=== PATIENT | male | born 1945 | race Caucasian/White ===

== ENCOUNTER 2017-07-10 21:31 | Observation (INO) | payer MEDICARE, BC ==
[~2017-07-10] VITALS: Ht 167.6 cm; Wt 58.4 kg
[~2017-07-10 21:31] MED LIST: DOXA1TAB35 PO; FINA5TAB2 PO; LOSA25TA PO
[2017-07-10 21:34] VITALS: BP 166/74; PULSE 63; RESP 20; TEMP 97.7; O2SAT 99
[2017-07-10] MEDS ORDERED: MOBI15TA PO (21:44)
[2017-07-10 21:45] VITALS: RESP 16; O2SAT 97
[2017-07-10] MEDS ORDERED: NAPR1TAB98 PO (21:49)
[2017-07-10] MEDS ORDERED: GLUC1TAB38 PO (21:49)
[2017-07-10] MEDS ORDERED: ALEV220T14 PO (21:49)
[2017-07-10] MEDS ORDERED: VITA100T65 PO (21:49)
[2017-07-10] MEDS ORDERED: MULTTAB67 PO (21:49)
[2017-07-10] MEDS ORDERED: VITA500T83 PO (21:49)
[2017-07-10] MEDS ORDERED: ASPIRIN 81 MG CHEW TAB PO ONE (22:00)
[2017-07-10] MEDS ORDERED: SODIUM CHLORIDE 0.9% FLUSH 10 ML FLUSH IVF PRN (22:00)
--- NOTE | 2017-07-10 22:02 | PD ---
HPI Chief Complaint: Chest Pain Time Seen by Provider: 21:55 Travel History International Travel<30 days: No Contact w/Intl Traveler<30days: No Traveled to known affect area: No History of Present Illness HPI The patient is a 72-year-old male with no known history of heart disease who complains of chest pain, indigestion feeling, since 8 PM tonight. The pain is constant and there is slight radiation to the left arm. He does have minimal shortness of breath sensation without any nausea or diaphoresis. He does not smoke, have high cholesterol or diabetes but does have a history of mild hypertension. He is physically active and walks about 4 miles daily. His last stress test was 14 years ago. The pain started out as an 8/10 but is only a 4/ 10 at this time. [facility] Social History Alcohol Use: Yes (OCCAS) Tobacco Use: No Substance Use: No Allergies-Medications (Allergen,Severity, Reaction): Coded Allergies: No Known Allergies (Unverified , 10/15/16) Reported Meds & Prescriptions Reported Meds & Active Scripts Active Reported Mxtsvtikni-Xrttkpqqssp-PRL Tab (Gluc/Jin-MSM#2/C/D3/Isac/Born) 1 Each Tablet 1 Tab PO DAILY Vitamin C ER (Ascorbic Acid) 500 Mg Sherman 500 Mg PO Vitamin E 100 Unit Tab 400 Units PO DAILY Multiple Vitamin 1 Tab 1 Tab PO DAILY Aleve PM (Naproxen Sodium-Diphenhydramine) 220-25 Mg Tab 2 Tab PO HS PRN Aleve Arthritis (Naproxen Sodium) 220 Mg Tab 220 Mg PO DAILY Mobic (Meloxicam) 15 Mg Tab 15 Mg PO DAILY PRN Losartan (Losartan Potassium) 25 Mg Tab 25 Mg PO DAILY Doxazosin (Doxazosin Mesylate) 2 Mg Tab 2 Mg PO DAILY Finasteride 5 Mg Tab 5 Mg PO DAILY Do not crush. Review of Systems Except as stated in HPI: all other systems reviewed are Neg Physical Exam Narrative GENERAL: The patient is alert, oriented 3 and slight apparent distress with his indigestion feeling. His vital signs show blood pressure 166/74 but are otherwise normal. SKIN: Focused skin assessment warm/dry. HEAD: Atraumatic. Normocephalic. EYES: Pupils equal and round. No scleral icterus. No injection or drainage. ENT: No nasal bleeding or discharge. Mucous membranes pink and moist. NECK: Trachea midline. No JVD. CARDIOVASCULAR: Regular rate and rhythm. No murmur appreciated. RESPIRATORY: No accessory muscle use. Clear to auscultation. Breath sounds equal bilaterally. I cannot reproduce the patient's pain by pressing on the chest wall. GASTROINTESTINAL: Abdomen soft, non-tender, nondistended. Hepatic and splenic margins not palpable. No guarding or rebound is present. MUSCULOSKELETAL: No obvious deformities. No clubbing. No cyanosis. No edema. NEUROLOGICAL: Awake and alert. No obvious cranial nerve deficits. Motor grossly within normal limits. Normal speech. PSYCHIATRIC: Appropriate mood and affect; insight and judgment normal. Data Data Last Documented VS Vital Signs Date Time Temp Pulse Resp B/P (MAP) Pulse Ox O2 Delivery O2 Flow Rate FiO2 07/10/17 22:40 66 16 142/58 (86) 95 Room Air 07/10/17 21:34 97.7 Orders Orders Electrocardiogram (07/10/17 21:55) Ckmb (Isoenzyme) Profile (07/10/17 21:55) Complete Blood Count With Diff (07/10/17 21:55) Comprehensive Metabolic Panel (07/10/17 21:55) Magnesium (Mg) (07/10/17 21:55) Prothrombin Time / Inr (Pt) (07/10/17 21:55) Act Partial Throm Time (Ptt) (07/10/17 21:55) Troponin I (07/10/17 21:55) Ecg Monitoring (07/10/17 21:55) Bilateral Bp Monitoring (07/10/17 21:55) Iv Access Insert/Monitor (07/10/17 21:55) Oximetry (07/10/17 21:55) Oxygen Administration (07/10/17 21:55) Aspirin Chew (Aspirin Chew) (07/10/17 22:00) Sodium Chloride 0.9% Flush (Ns Flush) (07/10/17 22:00) Nitroglycerin Sl (Nitrostat Sl) (07/10/17 22:00) Chest, Pa & Lat (07/10/17 21:55) Place In Observation (07/10/17 23:25) Activity Bed Rest With Brp (07/10/17 23:25) Vital Signs (Adult) Q4H (07/10/17 23:25) Cardiac Rhythm .As Directed (07/10/17 23:25) Notify Dr: Other .PRN (07/10/17 23:25) Notify Dr. Parameters (07/10/17 23:25) Resp Oxygen Nasal Cannula (07/10/17 ) Diet Heart Healthy (07/11/17 Breakfast) Ckmb (Isoenzyme) Profile (07/10/17 23:25) Ckmb (Isoenzyme) Profile (07/11/17 02:25) Troponin I (07/10/17 23:25) Troponin I (07/11/17 02:25) Electrocardiogram (07/10/17 23:25) Electrocardiogram (07/11/17 02:25) ^ Obtain (07/10/17 23:25) Sodium Chloride 0.9% Flush (Ns Flush) (07/10/17 23:30) Sodium Chloride 0.9% Flush (Ns Flush) (07/11/17 09:00) Acetaminophen (Tylenol) (07/10/17 23:30) Ondansetron Inj (Zofran Inj) (07/10/17 23:30) Aspirin (Aspirin) (07/11/17 09:00) Alprazolam (Xanax) (07/10/17 23:30) Iron Carrier / Telemetry GRICEL.Q8H (07/10/17 23:25) Admit Order (Ed Use Only) (07/10/17 23:28) Labs Laboratory Tests Test 07/10/17 22:15 White Blood Count 6.7 TH/MM3 Red Blood Count 4.69 MIL/MM3 Hemoglobin 14.2 GM/DL Hematocrit 41.9 % Mean Corpuscular Volume 89.3 FL Mean Corpuscular Hemoglobin 30.2 PG Mean Corpuscular Hemoglobin Concent 33.9 % Red Cell Distribution Width 12.9 % Platelet Count 199 TH/MM3 Mean Platelet Volume 8.5 FL Neutrophils (%) (Auto) 53.0 % Lymphocytes (%) (Auto) 34.3 % Monocytes (%) (Auto) 7.9 % Eosinophils (%) (Auto) 4.0 % Basophils (%) (Auto) 0.8 % Neutrophils # (Auto) 3.5 TH/MM3 Lymphocytes # (Auto) 2.3 TH/MM3 Monocytes # (Auto) 0.5 TH/MM3 Eosinophils # (Auto) 0.3 TH/MM3 Basophils # (Auto) 0.1 TH/MM3 CBC Comment DIFF FINAL Differential Comment Prothrombin Time 10.2 SEC Prothromb Time International Ratio 0.9 RATIO Activated Partial Thromboplast Time 25.1 SEC Blood Urea Nitrogen 21 MG/DL Creatinine 0.99 MG/DL Random Glucose 97 MG/DL Total Protein 7.0 GM/DL Albumin 3.9 GM/DL Calcium Level 9.2 MG/DL Magnesium Level 2.2 MG/DL Alkaline Phosphatase 70 U/L Aspartate Amino Transf (AST/SGOT) 18 U/L Alanine Aminotransferase (ALT/SGPT) 26 U/L Total Bilirubin 0.3 MG/DL Sodium Level 140 MEQ/L Potassium Level 3.9 MEQ/L Chloride Level 104 MEQ/L Carbon Dioxide Level 29.1 MEQ/L Anion Gap 7 MEQ/L Estimat Glomerular Filtration Rate 74 ML/MIN Total Creatine Kinase 90 U/L Troponin I LESS THAN 0.02 NG/ML MDM Medical Decision Making Medical Screen Exam Complete: Yes Emergency Medical Condition: Yes Medical Record Reviewed: Yes Interpretation(s) The PA and lateral chest x-ray is normal. The CBC is normal. The coagulation profile is normal. The complete metabolic profile shows a BUN of 21, GFR of 74 but is otherwise normal. The cardiac enzymes are normal. EKG shows sinus rhythm with a rate of 63 and is a normal EKG. Differential Diagnosis Esophageal pain, gastrointestinal pain, pleuritic pain, chest wall pain, acute coronary syndrome, chest pain etiology undetermined, electrolyte disorder Narrative Course The patient has chest pain etiology undetermined. He will be admitted to the chest pain center. He has not had a stress test in over 10 years. Physician Communication Physician Communication Discussed the patient with Dr. COPELAND. Diagnosis Primary Impression: Chest pain of unknown etiology Admitting Information Admitting Physician Requests: Observation Juan Carlos Garcia MD Jul 10, 2017 22:02
[2017-07-10] MEDS: NITROGLYCERIN 0.4 MG SL 25 TABS/BTL SL SCH ×3 (22:05→22:31)
[2017-07-10 22:07] VITALS: BP_SYST 177; BP_SYST 188; BP_DIAS 72; PULSE 62; RESP 16; O2SAT 96
[2017-07-10 22:08] VITALS: BP 177/72; PULSE 62; RESP 16; O2SAT 97
[2017-07-10 22:40] VITALS: BP 142/58; PULSE 66; RESP 16; O2SAT 95
[2017-07-10 22:48] LABS: CHLORIDE 104 MEQ/L (98-107); POTASSIUM 3.9 MEQ/L (3.5-5.1); SODIUM (NA) 140 MEQ/L (136-145)
[2017-07-10 22:52] LABS: ANION GAP 7 MEQ/L (5-15); BICARBONATE 29.1 MEQ/L (21.0-32.0); BLOOD UREA NITROGEN 21 MG/DL (7-18); MAGNESIUM 2.2 MG/DL (1.5-2.5)
[2017-07-10 22:54] LABS: AUTOMATED NEUTROPHIL # 3.5 TH/MM3 (1.8-7.7); BASOPHIL # 0.1 TH/MM3 (0-0.2); BASOPHIL % 0.8 % (0.0-2.0); EOSINOPHIL # 0.3 TH/MM3 (0-0.4); HEMATOCRIT 41.9 % (39.0-51.0); HEMO FLAGS DIFF FINAL; LYMPH % 34.3 % (9.0-44.0); LYMPHOCYTE # 2.3 TH/MM3 (1.0-4.8); MEAN CELL VOLUME 89.3 FL (80.0-100.0); MEAN CORPUSCULAR HEMOGLOBIN 30.2 PG (27.0-34.0); MEAN CORPUSCULAR HGB CONC 33.9 % (32.0-36.0); MONO % 7.9 % (0.0-8.0); PLATELET COUNT 199 TH/MM3 (150-450); RED BLOOD COUNT 4.69 MIL/MM3 (4.50-5.90); RED CELL DISTRIBUTION WIDTH 12.9 % (11.6-17.2); WHITE BLOOD COUNT 6.7 TH/MM3 (4.0-11.0)
[2017-07-10 22:55] LABS: ALT (GPT) 26 U/L (12-78); APTT (PATIENT) 25.1 SEC (24.3-30.1); AST (GOT) 18 U/L (15-37); GLOMERULAR FILTRATION RATE 74 ML/MIN (>89); INTERNATIONAL NORMALIZED RATIO 0.9 RATIO; PROTHROMBIN TIME - PATIENT 10.2 SEC (9.8-11.6)
[2017-07-10 22:57] LABS: TOTAL BILIRUBIN ADULT 0.3 MG/DL (0.2-1.0)
[2017-07-10 22:58] LABS: ALKALINE PHOSPHATASE 70 U/L (45-117)
[2017-07-10 23:06] LABS: CREATINE KINASE 90 U/L (39-308)
--- NOTE | 2017-07-10 23:18 | RADRPT ---
EXAM DATE/TIME: 07/10/2017 22:46 [facility] COMPARISON: No previous studies available for comparison. INDICATIONS : Chest pain. MEDICAL HISTORY : Hypertension. Meningitis, in 1964. SURGICAL HISTORY : None. ENCOUNTER: Initial ACUITY: 1 day PAIN SCORE: 1/10 LOCATION: Left chest FINDINGS: PA and lateral views of the chest demonstrate the lungs to be symmetrically aerated without evidence of mass, infiltrate or effusion. The cardiomediastinal contours are unremarkable. Osseous structure s are intact. CONCLUSION: Normal examination. Les Wong MD on July 10, 2017 at 23:16 Board Certified Radiologist. This report was verified electronically.
[2017-07-10] MEDS ORDERED: ONDANSETRON HCL 4 MG/2 ML VIAL IV PRN (23:30)
[2017-07-10] MEDS ORDERED: ALPRAZolam 0.25 MG TAB PO PRN (23:30)
[2017-07-10] MEDS ORDERED: ACETAMINOPHEN 500 MG CPLT PO PRN (23:30)
[2017-07-10] MEDS ORDERED: SODIUM CHLORIDE 0.9% FLUSH 10 ML FLUSH IV FLUSH PRN (23:30)
[2017-07-10 23:55] VITALS: BP 137/52; PULSE 62; RESP 16; O2SAT 96
[2017-07-11] VITALS (20 sets, daily range): BP systolic 112–151; BP diastolic 43–66; PULSE 52–66; RESP 10–20; TEMP 97.2–98.3; O2SAT 96–97
[2017-07-11 02:02] LABS: CREATINE KINASE 77 U/L (39-308)
[2017-07-11 04:44] LABS: CREATINE KINASE 70 U/L (39-308)
[2017-07-11] MEDS ORDERED: LACTULOSE SYRUP 20 GM/30 ML CUP PO PRN (07:00)
[2017-07-11] MEDS ORDERED: ACETAMINOPHEN/HYDROcodone 325 MG/5 MG TAB PO PRN (07:00)
[2017-07-11] MEDS ORDERED: SENNOSIDES 8.6 MG TAB PO PRN (07:00)
[2017-07-11] MEDS ORDERED: ACETAMINOPHEN 325 MG TAB PO PRN (07:00)
[2017-07-11] MEDS ORDERED: BISACODYL 10 MG SUPP RECTAL PRN (07:00)
[2017-07-11] MEDS ORDERED: NALOXONE HCL 0.4 MG/ML AMP IV PRN (07:00)
[2017-07-11] MEDS ORDERED: MAGNESIUM HYDROXIDE SUSP 30 ML CUP PO PRN (07:00)
[2017-07-11] MEDS ORDERED: ACETAMINOPHEN/HYDROcodone 325 MG/7.5 MG TAB PO PRN (07:00)
[2017-07-11] MEDS ORDERED: ASPIRIN 325 MG TAB PO SCH (09:00)
[2017-07-11] MEDS ORDERED: FINASTERIDE 5 MG TAB PO SCH (09:00)
[2017-07-11] MEDS ORDERED: SODIUM CHLORIDE 0.9% FLUSH 10 ML FLUSH IV FLUSH SCH (09:00)
[2017-07-11] MEDS ORDERED: DOXAZOSIN MESYLATE 2 MG TAB PO SCH (09:00)
[2017-07-11] MEDS ORDERED: LOSARTAN 25 MG TAB PO SCH (09:00)
[2017-07-11] MEDS ORDERED: DOCUSATE SODIUM 50 MG/SENNA 8.6 MG TAB PO SCH (09:00)
--- NOTE | 2017-07-11 09:41 | HHI.HP ---
HPI Service [facility] Primary Care Physician Heena Knox MD Admission Diagnosis chest pain of unknown etiology Diagnoses: Chief Complaint: Chest pain Travel History International Travel<30 Days: No Contact w/Intl Traveler <30 Da: No Traveled to Known Affected Are: No History of Present Illness This is a 72-year-old male with a history of hypertension and BPH. He presents to the emergency department complaining of chest pain. 1 1/2 hours after dinner , he developed severe burning retrosternal pain described as indigestion feeling that lasted for 3 hours radiating to the left arm associated with dizziness. Denies diaphoresis, nausea and shortness of breath. His gave him "enzymes" to no relief. In the emergency department he received aspirin and nitroglycerin which relieved the pain. Denies history of CAD, DVT, PE, leg pain, swelling and recent immobilization. Patient ruled out for WA overnight. He agrees to proceed with Lexiscan. He has a history of heart murmur that sounded like aortic stenosis. All other systems reviewed negative Review of Systems Except as stated in HPI: all other systems reviewed are Neg Past Family Social History Past Medical History As previously mentioned Past Surgical History TRP and bone resection secondary to mass which was benign Reported Medications Mrzjmkfbpr-Amghjxiipgh-WHA Tab (Gluc/Jin-MSM#2/C/D3/Isac/Born) 1 Each Tablet 1 Tab PO DAILY Vitamin C ER (Ascorbic Acid) 500 Mg Sherman 500 Mg PO Vitamin E 100 Unit Tab 400 Units PO DAILY Multiple Vitamin 1 Tab 1 Tab PO DAILY Aleve PM (Naproxen Sodium-Diphenhydramine) 220-25 Mg Tab 2 Tab PO HS PRN Aleve Arthritis (Naproxen Sodium) 220 Mg Tab 220 Mg PO DAILY Mobic (Meloxicam) 15 Mg Tab 15 Mg PO DAILY PRN Losartan (Losartan Potassium) 25 Mg Tab 25 Mg PO DAILY Doxazosin (Doxazosin Mesylate) 2 Mg Tab 2 Mg PO DAILY Finasteride 5 Mg Tab 5 Mg PO DAILY Do not crush. Allergies: Coded Allergies: No Known Allergies (Unverified , 12/1/16) Family History No CAD Social History Occasional alcohol use. Does not smoke Physical Exam Vital Signs Vital Signs Date Time Temp Pulse Resp B/P (MAP) Pulse Ox O2 Delivery O2 Flow Rate FiO2 07/11/17 06:00 58 20 135/55 (81) 96 07/11/17 06:00 58 07/11/17 05:00 52 07/11/17 05:00 52 20 141/53 (82) 96 07/11/17 04:00 54 07/11/17 04:00 97.6 54 20 112/43 (66) 96 07/11/17 03:00 56 20 149/47 (81) 97 07/11/17 03:00 56 07/11/17 02:00 56 20 113/46 (68) 97 07/11/17 02:00 56 07/11/17 00:06 54 07/11/17 00:06 97.2 56 20 140/48 (78) 97 07/11/17 00:00 97 21 07/10/17 23:58 07/10/17 23:55 62 16 137/52 (80) 96 Room Air 07/10/17 22:40 66 16 142/58 (86) 95 Room Air 07/10/17 22:36 16 07/10/17 22:08 62 16 177/72 (107) 97 Room Air 07/10/17 22:07 62 16 188/72 (110) 96 Room Air 177/72 (107) 07/10/17 21:50 66 16 99 Room Air 07/10/17 21:45 16 97 Room Air 07/10/17 21:45 96 Room Air 07/10/17 21:34 97.7 63 20 166/74 (104) 99 Physical Exam GENERAL: This is a well-nourished, well-developed patient, in no apparent distress. SKIN: No rashes, ecchymoses or lesions. Cool and dry. HEAD: Atraumatic. Normocephalic. No temporal or scalp tenderness. EYES: Pupils equal round and reactive. Extraocular motions intact. No scleral icterus. No injection or drainage. ENT: Nose without bleeding, purulent drainage or septal hematoma. Throat without erythema, tonsillar hypertrophy or exudate. Uvula midline. Airway patent. NECK: Trachea midline. No JVD or lymphadenopathy. Supple, nontender, no meningeal signs. CARDIOVASCULAR: Regular rate and rhythm without gallops, or rubs. Systolic murmur aortic area RESPIRATORY: Clear to auscultation. Breath sounds equal bilaterally. No wheezes , rales, or rhonchi. Chest wall tenderness GASTROINTESTINAL: Abdomen soft, non-tender, nondistended. No guarding. MUSCULOSKELETAL: Extremities without clubbing, cyanosis, or edema. No joint tenderness, effusion, or edema noted. No calf tenderness. Negative Homans sign bilaterally. NEUROLOGICAL: Awake and alert. Cranial nerves II through XII intact. Motor and sensory grossly within normal limits. Five out of 5 muscle strength in all muscle groups. Normal speech. Laboratory Laboratory Tests Test 07/10/17 22:15 07/11/17 01:15 07/11/17 04:05 White Blood Count 6.7 Red Blood Count 4.69 Hemoglobin 14.2 Hematocrit 41.9 Mean Corpuscular Volume 89.3 Mean Corpuscular Hemoglobin 30.2 Mean Corpuscular Hemoglobin Concent 33.9 Red Cell Distribution Width 12.9 Platelet Count 199 Mean Platelet Volume 8.5 Neutrophils (%) (Auto) 53.0 Lymphocytes (%) (Auto) 34.3 Monocytes (%) (Auto) 7.9 Eosinophils (%) (Auto) 4.0 Basophils (%) (Auto) 0.8 Neutrophils # (Auto) 3.5 Lymphocytes # (Auto) 2.3 Monocytes # (Auto) 0.5 Eosinophils # (Auto) 0.3 Basophils # (Auto) 0.1 CBC Comment DIFF FINAL Differential Comment Prothrombin Time 10.2 Prothromb Time International Ratio 0.9 Activated Partial Thromboplast Time 25.1 Blood Urea Nitrogen 21 Creatinine 0.99 Random Glucose 97 Total Protein 7.0 Albumin 3.9 Calcium Level 9.2 Magnesium Level 2.2 Alkaline Phosphatase 70 Aspartate Amino Transf (AST/SGOT) 18 Alanine Aminotransferase (ALT/SGPT) 26 Total Bilirubin 0.3 Sodium Level 140 Potassium Level 3.9 Chloride Level 104 Carbon Dioxide Level 29.1 Anion Gap 7 Estimat Glomerular Filtration Rate 74 Total Creatine Kinase 90 77 70 Troponin I LESS THAN 0.02 LESS THAN 0.02 LESS THAN 0.02 Result Diagram: 07/10/17221407/10/172214 Imaging EKG tracings reviewed by me #1 sinus rhythm, EKG #2 and 3 with sinus bradycardia with nonspecific ST-T changes in leads III and aVF Chest x-ray image reviewed by me with no acute cardiopulmonary disease Last Impressions Chest X-Ray 07/10/17 3143 Signed Impressions: Service Date/Time: Monday, July 10, 2017 22:46 - CONCLUSION: Normal examination. MD Eliot Byrd VTE Risk Assessment Eliot VTE Risk Assessment: Mod/High Risk (score >= 2) Caprini Risk Assessment Model Point Value = 1 Point Value = 2 Point Value = 3 Point Value = 5 Age 41-60 Minor surgery BMI > 25 kg/m2 Swollen legs Varicose veins or History of unexplained or recurrent spontaneous Oral contraceptives or hormone replacement Sepsis (< 1 month) Serious lung disease, including pneumonia (< 1 month) Abnormal pulmonary function Acute myocardial infarction Congestive heart failure (< 1 month) History of inflammatory bowel disease Medical patient at bed rest Age 61-74 Arthroscopic surgery Major open surgery (> 45 min) Laparoscopic surgery (> 45 min) Malignancy Confined to bed (> 72 hours) Immobilizing plaster cast Central venous access Age >= 75 History of VTE Family history of VTE Factor V Leiden Prothrombin [id number] Lupus anticoagulant Anticardiolipin antibodies Elevated serum homocysteine Heparin-induced thrombocytopenia Other congenital or acquired thrombophilia Stroke (< 1 month) Elective arthroplasty Hip, pelvis, or leg fracture Acute spinal cord injury (< 1 month) Prophylaxis Regimen Total Risk Factor Score Risk Level Prophylaxis Regimen 0-1 Low Early ambulation 2 Moderate Order ONE of the following: *Sequential Compression Device (SCD) *Heparin 5000 units SQ BID 3-4 Higher Order ONE of the following medications: *Heparin 5000 units SQ TID *Enoxaparin/Lovenox 40 mg SQ daily (WT < 150 kg, CrCl > 30 mL/min) *Enoxaparin/Lovenox 30 mg SQ daily (WT < 150 kg, CrCl > 10-29 mL/min) *Enoxaparin/Lovenox 30 mg SQ BID (WT < 150 kg, CrCl > 30 mL/min) AND/OR *Sequential Compression Device (SCD) 5 or more Highest Order ONE of the following medications: *Heparin 5000 units SQ TID (Preferred with Epidurals) *Enoxaparin/Lovenox 40 mg SQ daily (WT < 150 kg, CrCl > 30 mL/min) *Enoxaparin/Lovenox 30 mg SQ daily (WT < 150 kg, CrCl > 10-29 mL/min) *Enoxaparin/Lovenox 30 mg SQ BID (WT < 150 kg, CrCl > 30 mL/min) AND *Sequential Compression Device (SCD) Assessment and Plan Problem List: (1) Chest pain of unknown etiology ICD Code: R07.89 - Other chest pain Status: Acute (2) BPH (benign prostatic hypertrophy) with urinary obstruction ICD Code: N40.1 - Benign prostatic hyperplasia with urinary obstruction Status: Acute Assessment and Plan This is a 72-year-old male with a history of hypertension and BPH. He presents to the emergency department complaining of chest pain. Chest pain sounded like GI. Ruled out for [place]. Patient has risk factors will proceed with Lexiscan. Start Pepcid and antacids as needed. Antireflux mechanisms discussed with the patient. Pain management with Lortab and Tylenol. Monitor on telemetry DVT Prophylaxis with SCD Discussed Condition With Patient Discharge patient to home Condition on discharge: Improved Regular Diet as tolerated Ad Milena activity Rx written: Pepcid Follow-up with primary care physician in one week Joe Richardson MD Jul 11, 2017 09:41
[2017-07-11] MEDS ORDERED: ALUMINUM/MAGNESIUM/SIMETH 30 ML CUP PO PRN (10:30)
[2017-07-11] MEDS ORDERED: CALCIUM CARBONATE 500 MG CHEWABLE TAB CHEW PRN (10:30)
[2017-07-11] MEDS ORDERED: FAMO20TA2 PO (10:36)
--- NOTE | 2017-07-11 10:36 | HHI.DCPOC ---
Discharge Care Plan Diagnosis: (1) Chest pain of unknown etiology (2) BPH (benign prostatic hypertrophy) with urinary obstruction Your Health Problems Are: Difficulty with ADL Exercise Tolerance Goals to Promote Your Health * To prevent worsening of your condition and complications * To maintain your health at the optimal level Directions to Meet Your Goals Take your medications as prescribed Follow your dietary instruction Follow activity as directed Keep your appointments as scheduled Take your immunizations and boosters as scheduled If your symptoms worsen call your PCP, if no PCP go to Urgent Care Center or Emergency Room Smoking is Dangerous to Your Health. Avoid second hand smoke Call the 24-hour hour crisis hotline for domestic abuse at Joe Richardson MD Jul 11, 2017 10:36
--- NOTE | 2017-07-11 11:50 | EKG ---
Date Performed: 07/11/2017 Time Performed: 04:17:19 PTAGE: 72 years EKG: SINUS BRADYCARDIA BORDERLINE ECG PREVIOUS TRACING : 07/11/2017 01.28 Compared to prior tracing no significant change DOCTOR: Lucas Nova Interpretating Date/Time 07/11/2017 11:49:27
--- NOTE | 2017-07-11 11:53 | EKG ---
Date Performed: 07/11/2017 Time Performed: 01:28:41 PTAGE: 72 years EKG: SINUS BRADYCARDIA BORDERLINE ECG PREVIOUS TRACING : 03/12/2016 09.14 Compared to prior tracing no significant change DOCTOR: Lucas Nova Interpretating Date/Time 07/11/2017 11:52:11
--- NOTE | 2017-07-11 11:57 | EKG ---
Date Performed: 07/10/2017 Time Performed: 21:41:35 PTAGE: 72 years EKG: Sinus rhythm NORMAL ECG Compared to prior tracing no significant change DOCTOR: Lucas Nova Interpretating Date/Time 07/11/2017 11:56:09
[2017-07-11] MEDS ORDERED: REGADENOSON INJ 0.4 MG/5 ML SYR IV ONE (14:35)
--- NOTE | 2017-07-11 15:40 | RADRPT ---
EXAM DATE/TIME: 07/11/2017 13:28 [facility] COMPARISON: No previous studies available for comparison. INDICATIONS : Chest pain and burning. Angina. DOSE: 27.3 mCi Tc99m Myoview at stress. 8.5 mCi Tc99m Myoview at rest. 0.4 mg Lexiscan STRESS SYMPTOMS: Dyspnea and chest pain. EJECTION FRACTION: > 70% MEDICAL HISTORY : Hypertension. BPH. SURGICAL HISTORY : TURP. ENCOUNTER: Initial ACUITY: 1 day PAIN SCALE: 0/10 LOCATION: Bilateral chest TECHNIQUE: The patient underwent pharmacologic stress with infusion of prescribed dose. Continuous ECG tracing was monitored during stress. Gated SPECT imaging was performed after stress and conventional SPECT i maging was performed at rest. The examination was performed on a SPECT/CT scanner, both attenuation and non-corrected datasets were reviewed. FINDINGS: DISTRIBUTION: The maximum perfused segment at stress is in the anterior and lateral wang. PERFUSION STUDY: The pattern of perfusion at stress is within normal limits. GATED STUDY: There is intact wall motion and thickening without hypokinetic or dyskinetic segments. CONCLUSION: Within normal limits. No stress-induced ischemia. Normal wall motion/left ventricular ejection fracti on. RISK CATEGORY: Low Vincent Hannah MD on July 11, 2017 at 15:37 Board Certified Radiologist. This report was verified electronically.
[2017-07-11] MEDS ORDERED: FAMOTIDINE 20 MG TAB PO SCH (21:00)
[2017-07-12] MEDS ORDERED: PNEUMOCOCCAL POLYVALENT INJ 25 MCG/0.5 ML SYR IM ONE (10:00)
[2017-07-12] MEDS ORDERED: INFLUENZA VIRUS VACCINE (QUADRIVALENT) 0.5 ML SYR IM ONE (10:00)
--- NOTE | 2017-07-12 12:06 | TR ---
Date Performed: 07/11/2017 Time Performed: 14:20:02 DOCTOR: Austen Leary DRUG LIST: CLINICAL HISTORY: REASON FOR TEST: REASON FOR ENDING: OBSERVATION: CONCLUSION: Lexiscan stress test was performed under standard four minute protocol. Radionuclid e was injected one minute prior to ending the test. No electrocardiographic abormalities were present to suggest ischemia. Nuclear imaging and interpretation are pending. COMMENTS:
== END 2017-07-11 16:40 | disposition home or self-care (01) ==
LOC: PHED 21:31 → PHEDA 23:30 → PHICU 07-11 00:01
PROVIDERS: ADMIT Internal Medicine; ATTEND Internal Medicine
DX: R07.89 Other chest pain (principal); N40.1 Benign prostatic hyperplasia with lower urinary tract symptoms; R94.31 Abnormal electrocardiogram [ECG] [EKG]
CPT/HCPCS: 71020; 78452; 80053; 82550; 83735; 84484; 85025; 85610; 85730; 93005; 93017; 96374; 99285; A9502; G0378; J2405; J2785